=== PATIENT | female | born 1975 | race Caucasian/White ===

== ENCOUNTER → 2016-10-16 | Outpatient (CLI) | payer OTHER ==
--- NOTE | 2016-10-16 08:47 | RAD ---
EXAM DESCRIPTION: XR WRIST 3 OR MORE VIEWS CLINICAL HISTORY: CLOSED FRACTURE OF DISTAL END OF RADIUS COMPARISON: September 27, 2016 FINDINGS: Again seen is a healed or healing distal right radial fracture with moderate displacement, stable from the patient's prior exam period there is a nonunited ulnar styloid fracture, also stable. The radiocarpal joint is anatomically aligned. The carpal bones are intact. IMPRESSION: Old distal radial and ulnar styloid fractures as detailed above, unchanged from September 27, 2016. Electronically signed by: Sheng Almendarez DO 10/16/2016 08:44
== END ==
LOC: RAD 07:35
PROVIDERS: ATTEND Orthopaedic Surgery
DX: S52.501D Unspecified fracture of the lower end of right radius, subsequent encounter for closed fracture with routine healing (principal)

== ENCOUNTER → 2016-11-05 | Outpatient (CLI) | payer OTHER ==
--- NOTE | 2016-11-05 09:32 | RAD ---
EXAM DESCRIPTION: XR WRIST 3 OR MORE VIEWS CLINICAL HISTORY: 41 y/o ,F, FX DISTAL END OF RADIUS COMPARISON: October 16, 2016 IMPRESSION: There is continued visualization of the distal radial fracture. Alignment is stable. The fracture line is less apparent on today's exam compatible with healing. Avulsion injury of the ulnar styloid process again noted. No new fracture. Electronically signed by: Darshan Peñaloza MD 11/05/2016 09:30
== END ==
LOC: RAD 08:13
PROVIDERS: ATTEND Orthopaedic Surgery
DX: S52.501D Unspecified fracture of the lower end of right radius, subsequent encounter for closed fracture with routine healing (principal)

== ENCOUNTER → 2018-03-06 | Outpatient (CLI) | payer OTHER | LOC: GMAJ 09:43 | PROVIDERS: ATTEND Family Medicine | DX: R06.02 Shortness of breath (principal) ==

== ENCOUNTER → 2020-06-29 | Outpatient (CLI) | payer BC | LOC: LAB.O 17:06 | PROVIDERS: ATTEND Specialist | DX: R55 Syncope and collapse (principal) ==